=== PATIENT | female | born 1995 | race Caucasian/White ===

== ENCOUNTER 2016-07-09 21:02 | Outpatient (CLI) | payer OTHER ==
[~2016-07-09 21:02] MED LIST: COLACE 100MG C100 MG PO
== END 2016-07-09 23:50 | disposition home or self-care (01) ==
LOC: GENOP 21:02
DX: O42.913 Preterm premature rupture of membranes, unspecified as to length of time between rupture and onset of labor, third trimester (principal); M54.9 Dorsalgia, unspecified; Z3A.29 29 weeks gestation of pregnancy
CPT/HCPCS: 82731; 83518; G0463

== ENCOUNTER 2021-06-09 10:06 | Emergency (ER) | payer OTHER ==
[~2021-06-09 10:06] MED LIST changes: +PRENATAL VITAM1 EAC3 PO
[2021-06-09 11:28] LABS: HEMOGLOBIN 14.8 gm/dl (12.3-15.3); RED BLOOD COUNT 4.63 M/UL (4.00-5.10); WHITE BLOOD COUNT 8.1 K/UL (4.5-11.0)
[2021-06-09 11:54] LABS: BUN/CREATININE RATIO 13 (0-10)
== END 2021-06-09 12:50 | disposition home or self-care (01) ==
LOC: ER1 10:06
PROVIDERS: Physician Assistant
DX: R07.9 Chest pain, unspecified (principal)
CPT/HCPCS: 71045; 80053; 82550; 82553; 84484; 85025; 85379; 93005; 99285